=== PATIENT | female | born 1980 | race Caucasian/White ===

== ENCOUNTER 2024-03-12 18:50 | Emergency (ER) | payer BC ==
--- NOTE | 2024-03-12 19:34 | ERPHSYRPT ---
- History of Present Illness Time Seen by Provider: 03/12/24 19:28 Source: patient Exam Limitations: no limitations Patient Subjective Stated Complaint: pt here for wasp sting to left lower arm about 2 1/2 hours ago . has placed ice on arm, no meds Triage Nursing Assessment: pt alert, walked, in, resp easy skin w/d/p. has swelling at redness to left lower arm Physician History: Patient stung by a bee in her left arm around 1630 today. Reports significant swelling immediately and it has continued to worsen. The area itches and tingles. She denies chest pain, sob, wheezing, tongue swelling, numbness or tingling. No previous hx of reaction to bee stings. Timing/Duration: today Quality: itchy, other (tingling) Severity: moderate Location: other (left arm) Possible Causes: insect sting Associated Symptoms: change in skin texture, edema, swelling/mass/lumps, tingli ng, No blisters, No difficulty breathing, No fever, No hives Allergies/Adverse Reactions: Penicillins Allergy (Severe, Verified 03/12/24 19:06) states "heart quits" Home Medications: estradioL [Estradiol] 1 ea DAILY 03/12/24 [History] Hx Tetanus, Diphtheria Vaccination/Date Given: No Hx Influenza Vaccination/Date Given: No Hx Pneumococcal Vaccination/Date Given: No Immunizations Up to Date: Yes Travel Risk - International Travel Have you traveled outside of the country in past 3 weeks: No - Review of Systems Constitutional: No Symptoms Eyes: No Symptoms Ears, Nose, & Throat: No Symptoms Respiratory: No Symptoms Cardiac: No Symptoms Abdominal/Gastrointestinal: No Symptoms All Other Systems: Reviewed and Negative - Past Medical History Pertinent Past Medical History: Yes Other Medical History: heterosphero cytosis - Past Surgical History Past Surgical History: Yes Gastrointestinal: Cholecystectomy Genitourinary: Other Female Surgical History: Hysterectomy, Section Other Surgical History: spleenectomy,kidney stent - Female History Hx Last Menstrual Period: hyster Hx Now: No - Social History Smoking Status: Never smoker Exposure to second hand smoke: No Drug Use: none Patient Lives Alone: No - Social Determinants of Health Will the patient participate in the screening: Yes Do you worry about a steady place to live?: Yes Do you have any problems with any of the following?: No known problems In the past 12 months,have you had to go without utilities?: No Transportation Issues: No Has anyone in your support network made you feel unsafe?: No Have you or anyone in your house had to go without enough: No - Nursing Vital Signs Nursing Vital Signs: Initial Vital Signs Pulse Rate 70 03/12/24 19:13 Respiratory Rate 18 03/12/24 19:13 Blood Pressure 125/78 03/12/24 19:13 O2 Sat by Pulse Oximetry 99 03/12/24 19:13 Pain Scale Pain Intensity 3 - Physical Exam General Appearance: no apparent distress Ears, Nose, Throat Exam: normal ENT inspection, pharynx normal, moist mucous membranes, No pharyngeal erythema Neck Exam: normal inspection, non-tender, supple, full range of motion Respiratory Exam: airway intact, No respiratory distress, No accessory muscle use Cardiovascular Exam: regular rate/rhythm, capillary refill <2 sec Extremity Exam: swelling (left forearm unable to locate stinger) Neurologic Exam: alert, oriented x 3, cooperative Skin Exam: normal color, warm, dry SpO2 Interpretation: normal SpO2: 99 O2 Delivery: Room Air - Course Nursing assessment & vital signs reviewed: Yes Ordered Tests: Medication Summary Discontinued Medications Generic Name Dose Route Start Last Admin Trade Name Freq PRN Reason Stop Dose Admin Diphenhydramine HCl 50 mg 03/12/24 19:36 03/12/24 19:55 Diphenhydramine Hcl 25 Mg Capsule PO 03/12/24 19:37 50 mg STAT ONE Administration Diphenhydramine HCl Confirm 03/12/24 19:53 Diphenhydramine Hcl 25 Mg Capsule Administered 03/12/24 19:54 Dose 50 mg .ROUTE .STK-MED ONE Prednisone 60 mg 03/12/24 19:37 03/12/24 19:56 Prednisone 20 Mg Tablet PO 03/12/24 19:38 60 mg STAT ONE Administration Prednisone Confirm 03/12/24 19:53 Prednisone 20 Mg Tablet Administered 03/12/24 19:54 Dose 60 mg .ROUTE .STK-MED ONE Zinc Acetate/Diphenhydramine 0.5 gm 03/12/24 19:36 03/12/24 20:01 Diphenhydramine Hcl/Zinc Acet 28.3 Gm Cream TP 03/12/24 19:37 30 gm ONCE ONE Administration Zinc Acetate/Diphenhydramine Confirm 03/12/24 19:58 Diphenhydramine Hcl/Zinc Acet 28.3 Gm Cream Administered 03/12/24 19:59 Dose 30 gm .ROUTE .STK-MED ONE - Progress Progress: unchanged Progress Note: No increased swelling since arrival. Itching and tingling improved. Sent Medrol to pharmacy. 03/12/24 20:26 Counseled pt/family regarding: diagnosis Medical Desision Making - Diagnostic Testing Diagnostic test were ordered, analyzed, and reviewed by me: No - Risk of complications The pt has a mod risk of morbidity or mortality based on: Need for prescription drug management - Departure Departure Disposition: Home Clinical Impression: Insect sting allergy, current reaction Condition: Good Critical Care Time: No Referrals: MALIKA MEDINA MD [Primary Care Provider] - Follow up/PCP as directed Instructions: Insect Bites and Stings (DC) Prescriptions: Methylprednisolone Packet [Medrol Dosepack] 4 mg PO UD #30 packet
[2024-03-12] MEDS ORDERED: DELTASONE 20 MG ONE (19:53)
[2024-03-12] MEDS ORDERED: BENADRYL 25 MG CAPSULE ONE (19:53)
[2024-03-12] MEDS: BENADRYL 25 MG CAPSULE PO ONE (19:55)
[2024-03-12] MEDS: DELTASONE 20 MG PO ONE (19:56)
[2024-03-12] MEDS ORDERED: Benadryl Itch Stopping Crm ONE (19:58)
[2024-03-12] MEDS: Benadryl Itch Stopping Crm TP ONE (20:01)
[2024-03-12 20:22] VITALS: BP 117/86; PULSE 82; RESP 17
[2024-03-12 20:29] VITALS: O2SAT 99
== END 2024-03-12 20:39 | disposition home or self-care (01) ==
LOC: ED 18:50
DX: T63.441A Toxic effect of venom of bees, accidental (unintentional), initial encounter (principal); R22.32 Localized swelling, mass and lump, left upper limb; Z79.52 Long term (current) use of systemic steroids; Z59.819 Housing instability, housed unspecified
CPT/HCPCS: 99282; A9270-GY